=== PATIENT | female | born 1945 | race Caucasian/White ===

== ENCOUNTER 2020-11-19 09:47 | Observation (INO) ==
[2020-11-19] MEDS ORDERED: Ipratropium/Albuterol Neb 3 ML IH ONE (10:02)
[2020-11-19 10:37] LABS: Basophils % 0.7 %; Eosinophils # 0.3 K/mcL (0.0-0.6); Eosinophils % 4.3 %; Hematocrit 38.1 % (35.3-44.9); Hemoglobin 13.1 g/dL (11.5-15.4); Immature Granulocytes % 0.5 % (0-4); Lymphocytes # 0.9 K/mcL (0.6-4.6); Lymphocytes % 14.8 %; Mean Corpuscular HGB Conc 34.4 g/dL (31.6-35.5); Mean Corpuscular Hemoglobin 39.3 pg (28.0-33.3); Mean Corpuscular Volume 114.4 fL (83.0-100.0); Mean Platelet Volume 9.4 fL (9.4-12.4); Monocytes # 0.7 K/mcL (0.0-1.3); Monocytes % 11.9 %; Platelet Count 126 K/mcL (140-400); Red Blood Count 3.33 M/mcL (3.82-4.97); Red Cell Distribution Width 14.4 % (11.5-14.5); Segmented Neutrophils % 67.8 %; White Blood Count 5.9 K/mcL (4.3-11.1)
[2020-11-19 10:45] LABS: INR 1.5; Prothrombin Time 17.1 Seconds (9.4-12.1)
[2020-11-19 10:52] LABS: Platelet Estimate Normal (Normal)
[2020-11-19 10:53] LABS: Macrocytosis Present (Not Present)
[2020-11-19 10:59] LABS: Alanine Aminotransferase 22 Units/L (7-52); Albumin 2.6 g/dL (3.5-5.7); Albumin/Globulin Ratio 0.6 (1.1-2.2); Alkaline Phosphatase 114 Units/L (34-104); Aspartate Amino Transferase 49 Units/L (13-39); BUN/Creatinine Ratio 21 (6-26); Bilirubin,Direct 1.3 mg/dL (0.0-0.2); Bilirubin,Indirect 2.4 mg/dL (0.0-1.0); Bilirubin,Total 3.7 mg/dL (0.3-1.0); Blood Urea Nitrogen 21 mg/dL (8-23); Carbon Dioxide 22 mEq/L (23-29); Chloride 105 mEq/L (98-107); Globulin 4.7 g/dL (2.4-3.5); Glucose 118 mg/dL (70-105); Osmolality,Calculated 282 (280-300); Potassium 4.1 mEq/L (3.5-5.1); Sodium 134 mEq/L (136-145); Total Protein 7.3 g/dL (6.4-8.9); Troponin I < 0.03 ng/mL (< 0.04); eGFR For African Americans > 60 (> 60); eGFR For Non-African Americans 55 (> 60)
[2020-11-19] MEDS ORDERED: cefTRIAXone 1,000 MG in Water for inj. (sterile) 10 ML IVP ONE (11:55)
[2020-11-19] MEDS ORDERED: Azithromycin 500 MG in 0.9 % Sodium Chloride 250 ML IVPB ONE (11:55)
[2020-11-19 11:59] LABS: Adenovirus Not Detected (Not Detect); Bordetella Pertussis Not Detected (Not Detect); Chlamydophila pneumoniae Not Detected (Not Detect); Coronavirus 229E Not Detected (Not Detect); Coronavirus HKU1 Not Detected (Not Detect); Coronavirus NL63 Not Detected (Not Detect); Coronavirus OC43 Not Detected (Not Detect); Human Metapneumovirus Not Detected (Not Detect); Human Rhinovirus/Enterovirus Not Detected (Not Detect); Influenza A Subtype 2009 H1 Not Detected (Not Detect); Influenza B Not Detected (Not Detect); Mycoplasma pneumoniae Not Detected (Not Detect); Parainfluenza Virus 1 Not Detected (Not Detect); Parainfluenza Virus 2 Not Detected (Not Detect); Parainfluenza Virus 3 Not Detected (Not Detect); Parainfluenza Virus 4 Not Detected (Not Detect); Respiratory Syncytial Virus Not Detected (Not Detect); SARS-CoV-2 Not Detected (Not Detect)
[2020-11-19] MEDS ORDERED: Furosemide 40 MG/4 ML VIAL IVP ONE (12:20)
[2020-11-19] MEDS ORDERED: methylPREDNISolone 125 MG/2 ML VIAL IVP ONE (12:20)
[2020-11-19] MEDS ORDERED: Isovue-370 500 ML BOTTLE IVP ONE (12:22)
[2020-11-19] MEDS ORDERED: Ondansetron ODT 4 MG TAB.RAPDIS SL PRN (15:46)
[2020-11-19] MEDS ORDERED: Melatonin 3 MG TABLET PO PRN (15:46)
[2020-11-19] MEDS ORDERED: Benzonatate 100 MG CAPSULE PO PRN (15:51)
[2020-11-19] MEDS ORDERED: Dextrose Gel 15 GM/37.5 ML TUBE PO PRN ×2 (15:54)
[2020-11-19] MEDS ORDERED: *HR* Dextrose 50 % in Water (Vial) 50 ML VIAL IVP PRN (15:54)
[2020-11-19] MEDS ORDERED: D5% in Water 1,000 ML IVC PRN (15:54)
[2020-11-19] MEDS: Bumetanide 1 MG/4 ML VIAL IVP SCH (16:35)
[2020-11-19] MEDS: Insulin LISPRO 300 UNITS/3 ML VIAL SUBQ SCH ×2 (16:35→20:23)
[2020-11-19] MEDS: *HR* Heparin 5,000 UNIT/ML VIAL SQ SCH (20:18)
[2020-11-19] MEDS: atenoloL 25 MG TABLET PO SCH (20:22)
[2020-11-19 23:49] LABS: Escherichia coli by PCR DETECTED (Not Detect)
[2020-11-19 23:50] LABS: Acinetobacter baumannii by PCR Not Detected (Not Detect); Candida albicans by PCR Not Detected (Not Detect); Candida glabrata by PCR Not Detected (Not Detect); Candida krusei by PCR Not Detected (Not Detect); Candida parapsilosis by PCR Not Detected (Not Detect); Candida tropicalis by PCR Not Detected (Not Detect); Enterobacter cloacae Cmplx PCR Not Detected (Not Detect); Enterococcus by PCR Not Detected (Not Detect); Klebsiella oxytoca by PCR Not Detected (Not Detect); Klebsiella pneumoniae by PCR Not Detected (Not Detect); Proteus by PCR Not Detected (Not Detect); Pseudomonas aeruginosa by PCR Not Detected (Not Detect); Serratia marcescens by PCR Not Detected (Not Detect); Staphylococcus aureus by PCR Not Detected (Not Detect); Staphylococcus by PCR Not Detected (Not Detect); Streptococcus agalactiae(B)PCR Not Detected (Not Detect); Streptococcus by PCR Not Detected (Not Detect); Streptococcus pneumoniae PCR Not Detected (Not Detect); Streptococcus pyogenes (A) PCR Not Detected (Not Detect)
[2020-11-20] MEDS: *HR* Heparin 5,000 UNIT/ML VIAL SQ SCH ×3 (04:39→20:30)
[2020-11-20 05:48] LABS: Basophils % 0.3 %; Hematocrit 35.8 % (35.3-44.9); Hemoglobin 11.9 g/dL (11.5-15.4); Immature Granulocytes % 0.6 % (0-4); Lymphocytes # 0.6 K/mcL (0.6-4.6); Lymphocytes % 18.5 %; Mean Corpuscular HGB Conc 33.2 g/dL (31.6-35.5); Mean Corpuscular Hemoglobin 37.7 pg (28.0-33.3); Mean Corpuscular Volume 113.3 fL (83.0-100.0); Mean Platelet Volume 9.7 fL (9.4-12.4); Monocytes # 0.2 K/mcL (0.0-1.3); Monocytes % 6.1 %; Neutrophils # 2.5 K/mcL (1.6-8.9); Platelet Count 113 K/mcL (140-400); Red Blood Count 3.16 M/mcL (3.82-4.97); Red Cell Distribution Width 13.9 % (11.5-14.5); Segmented Neutrophils % 74.5 %; White Blood Count 3.3 K/mcL (4.3-11.1)
[2020-11-20 06:14] LABS: BUN/Creatinine Ratio 31 (6-26); Blood Urea Nitrogen 33 mg/dL (8-23); Calcium 8.8 mg/dL (8.6-10.3); Carbon Dioxide 24 mEq/L (23-29); Chloride 103 mEq/L (98-107); Glucose 165 mg/dL (70-105); Magnesium 1.9 mg/dL (1.6-2.6); Osmolality,Calculated 289 (280-300); Phosphorous 3.8 mg/dL (2.7-4.5); Potassium 4.3 mEq/L (3.5-5.1); Sodium 134 mEq/L (136-145); eGFR For African Americans > 60 (> 60); eGFR For Non-African Americans 51 (> 60)
[2020-11-20 06:26] LABS: Macrocytosis Present (Not Present); Platelet Estimate Normal (Normal)
[2020-11-20] MEDS: Insulin LISPRO 300 UNITS/3 ML VIAL SUBQ SCH ×4 (08:21→20:29)
[2020-11-20] MEDS: atenoloL 25 MG TABLET PO SCH (08:22)
[2020-11-20] MEDS: cefTRIAXone 1,000 MG in Water for inj. (sterile) 10 ML IVP SCH (08:22)
[2020-11-20] MEDS: Azithromycin 250 MG TABLET PO SCH (08:22)
[2020-11-20] MEDS: Bumetanide 1 MG/4 ML VIAL IVP SCH ×2 (08:22→17:28)
[2020-11-20] MEDS: predniSONE 20 MG TABLET PO SCH (08:22)
[2020-11-20] MEDS: Ipratropium/Albuterol Neb 3 ML IH PRN (16:55)
[2020-11-21 04:49] LABS: Basophils % 0.1 %; Hematocrit 36.1 % (35.3-44.9); Hemoglobin 12.2 g/dL (11.5-15.4); Immature Granulocytes % 0.4 % (0-4); Lymphocytes # 0.7 K/mcL (0.6-4.6); Lymphocytes % 9.6 %; Mean Corpuscular HGB Conc 33.8 g/dL (31.6-35.5); Mean Corpuscular Hemoglobin 38.7 pg (28.0-33.3); Mean Corpuscular Volume 114.6 fL (83.0-100.0); Mean Platelet Volume 10.2 fL (9.4-12.4); Monocytes # 0.4 K/mcL (0.0-1.3); Monocytes % 5.8 %; Neutrophils # 6.4 K/mcL (1.6-8.9); Platelet Count 117 K/mcL (140-400); Red Blood Count 3.15 M/mcL (3.82-4.97); Red Cell Distribution Width 13.8 % (11.5-14.5); Segmented Neutrophils % 84.1 %
[2020-11-21 04:53] LABS: White Blood Count 7.6 K/mcL (4.3-11.1)
[2020-11-21 04:54] LABS: Macrocytosis Present (Not Present); Platelet Estimate Slight Decrease (Normal)
[2020-11-21 05:13] LABS: Alanine Aminotransferase 23 Units/L (7-52); Albumin 2.6 g/dL (3.5-5.7); Albumin/Globulin Ratio 0.6 (1.1-2.2); Alkaline Phosphatase 93 Units/L (34-104); Aspartate Amino Transferase 46 Units/L (13-39); BUN/Creatinine Ratio 40 (6-26); Bilirubin,Total 1.8 mg/dL (0.3-1.0); Blood Urea Nitrogen 42 mg/dL (8-23); Calcium 8.8 mg/dL (8.6-10.3); Carbon Dioxide 26 mEq/L (23-29); Chloride 103 mEq/L (98-107); Globulin 4.4 g/dL (2.4-3.5); Glucose 141 mg/dL (70-105); Osmolality,Calculated 291 (280-300); Potassium 4.1 mEq/L (3.5-5.1); Sodium 134 mEq/L (136-145); eGFR For African Americans > 60 (> 60); eGFR For Non-African Americans 52 (> 60)
[2020-11-21] MEDS: *HR* Heparin 5,000 UNIT/ML VIAL SQ SCH ×3 (06:39→21:25)
[2020-11-21] MEDS: Insulin LISPRO 300 UNITS/3 ML VIAL SUBQ SCH ×4 (08:07→20:37)
[2020-11-21] MEDS: Azithromycin 250 MG TABLET PO SCH (08:16)
[2020-11-21] MEDS: atenoloL 25 MG TABLET PO SCH (08:16)
[2020-11-21] MEDS: cefTRIAXone 1,000 MG in Water for inj. (sterile) 10 ML IVP SCH (08:16)
[2020-11-21] MEDS: predniSONE 20 MG TABLET PO SCH (08:16)
[2020-11-21] MEDS: Bumetanide 1 MG/4 ML VIAL IVP SCH (08:17)
[2020-11-22 04:40] LABS: Basophils % 0.1 %; Hematocrit 34.5 % (35.3-44.9); Hemoglobin 11.2 g/dL (11.5-15.4); Immature Granulocytes % 0.4 % (0-4); Lymphocytes # 0.9 K/mcL (0.6-4.6); Lymphocytes % 12.5 %; Mean Corpuscular HGB Conc 32.5 g/dL (31.6-35.5); Mean Corpuscular Hemoglobin 37.5 pg (28.0-33.3); Mean Corpuscular Volume 115.4 fL (83.0-100.0); Mean Platelet Volume 10.2 fL (9.4-12.4); Monocytes # 0.8 K/mcL (0.0-1.3); Monocytes % 11.5 %; Neutrophils # 5.1 K/mcL (1.6-8.9); Platelet Count 117 K/mcL (140-400); Red Blood Count 2.99 M/mcL (3.82-4.97); Red Cell Distribution Width 13.6 % (11.5-14.5); Segmented Neutrophils % 75.5 %; White Blood Count 6.8 K/mcL (4.3-11.1)
[2020-11-22 05:11] LABS: Macrocytosis Present (Not Present); Platelet Estimate Normal (Normal); Reactive Lymphocytes Present (Not Present)
[2020-11-22 05:12] LABS: Anisocytosis 1+ (Not Present)
[2020-11-22 05:18] LABS: BUN/Creatinine Ratio 40 (6-26); Blood Urea Nitrogen 42 mg/dL (8-23); Calcium 8.6 mg/dL (8.6-10.3); Carbon Dioxide 27 mEq/L (23-29); Chloride 105 mEq/L (98-107); Glucose 135 mg/dL (70-105); Osmolality,Calculated 295 (280-300); Potassium 3.9 mEq/L (3.5-5.1); Sodium 136 mEq/L (136-145); eGFR For African Americans > 60 (> 60); eGFR For Non-African Americans 52 (> 60)
[2020-11-22] MEDS: *HR* Heparin 5,000 UNIT/ML VIAL SQ SCH (05:44)
[2020-11-22] MEDS ORDERED: Bumetanide 1 MG/4 ML VIAL IVP SCH (09:00)
[2020-11-22] MEDS: atenoloL 25 MG TABLET PO SCH (09:07)
[2020-11-22] MEDS: cefTRIAXone 1,000 MG in Water for inj. (sterile) 10 ML IVP SCH (09:07)
[2020-11-22] MEDS: predniSONE 20 MG TABLET PO SCH (09:07)
[2020-11-22] MEDS: Azithromycin 250 MG TABLET PO SCH (09:07)
[2020-11-22] MEDS: Insulin LISPRO 300 UNITS/3 ML VIAL SUBQ SCH ×2 (09:08→12:32)
[2020-11-22] MEDS: Ipratropium/Albuterol Neb 3 ML IH PRN ×2 (10:09→17:01)
[2020-11-22 11:09] VITALS: BP 114/64
== END 2020-11-22 17:44 | disposition home health service (06) ==
LOC: 3BNU 09:47 → EMEROOARM 09:47 → SUATTDRO 15:03 → 3BNU 16:14
PROVIDERS: ADMIT Internal Medicine; ATTEND Internal Medicine

== ENCOUNTER 2021-01-07 11:41 | Observation (INO) ==
[2021-01-07] MEDS ORDERED: Furosemide 40 MG/4 ML VIAL IVP ONE (14:02)
[2021-01-07 14:22] LABS: Basophils # 0.1 K/mcL (0.0-0.2); Basophils % 1.2 %; Eosinophils # 0.9 K/mcL (0.0-0.6); Hematocrit 41.2 % (35.3-44.9); Immature Granulocytes % 0.6 % (0-4); Lymphocytes # 1.2 K/mcL (0.6-4.6); Lymphocytes % 14.3 %; Mean Corpuscular Hemoglobin 38.8 pg (28.0-33.3); Mean Corpuscular Volume 114.1 fL (83.0-100.0); Mean Platelet Volume 9.6 fL (9.4-12.4); Monocytes # 0.9 K/mcL (0.0-1.3); Monocytes % 10.1 %; Neutrophils # 5.3 K/mcL (1.6-8.9); Platelet Count 186 K/mcL (140-400); Red Blood Count 3.61 M/mcL (3.82-4.97); Red Cell Distribution Width 13.7 % (11.5-14.5); Segmented Neutrophils % 62.8 %; White Blood Count 8.4 K/mcL (4.3-11.1)
[2021-01-07 14:45] LABS: Alanine Aminotransferase 20 Units/L (7-52); Albumin 2.7 g/dL (3.5-5.7); Albumin/Globulin Ratio 0.6 (1.1-2.2); Alkaline Phosphatase 132 Units/L (34-104); Aspartate Amino Transferase 43 Units/L (13-39); BUN/Creatinine Ratio 21 (6-26); Bilirubin,Direct 1.5 mg/dL (0.0-0.2); Bilirubin,Indirect 2.4 mg/dL (0.0-1.0); Bilirubin,Total 3.9 mg/dL (0.3-1.0); Blood Urea Nitrogen 19 mg/dL (8-23); Calcium 9.3 mg/dL (8.6-10.3); Carbon Dioxide 24 mEq/L (23-29); Chloride 101 mEq/L (98-107); Globulin 4.4 g/dL (2.4-3.5); Glucose 128 mg/dL (70-105); Osmolality,Calculated 280 (280-300); Potassium 4.2 mEq/L (3.5-5.1); Sodium 133 mEq/L (136-145); Total Protein 7.1 g/dL (6.4-8.9); Troponin I < 0.03 ng/mL (< 0.04); eGFR For African Americans > 60 (> 60); eGFR For Non-African Americans > 60 (> 60)
[2021-01-07 14:50] LABS: Macrocytosis Present (Not Present); Platelet Estimate Normal (Normal)
[2021-01-07] MEDS ORDERED: Naloxone 0.4 MG/ML INJ IVP PRN (17:21)
[2021-01-07] MEDS ORDERED: *HR* HYDROcodone/Acet 5/325 mg TABLET PO PRN (17:21)
[2021-01-07] MEDS ORDERED: Ondansetron 4 MG/2 ML VIAL IVP PRN (17:21)
[2021-01-07] MEDS ORDERED: D5% in Water 1,000 ML IVC PRN (17:24)
[2021-01-07] MEDS ORDERED: Dextrose Gel 15 GM/37.5 ML TUBE PO PRN ×2 (17:24)
[2021-01-07] MEDS ORDERED: *HR* Dextrose 50 % in Water (Vial) 50 ML VIAL IVP PRN (17:24)
[2021-01-07] MEDS: Furosemide 40 MG/4 ML VIAL IVP SCH (22:26)
[2021-01-07] MEDS: *HR* Heparin 5,000 UNIT/ML VIAL SQ SCH (22:26)
[2021-01-08 04:41] LABS: BUN/Creatinine Ratio 19 (6-26); Blood Urea Nitrogen 19 mg/dL (8-23); Calcium 8.9 mg/dL (8.6-10.3); Carbon Dioxide 25 mEq/L (23-29); Chloride 104 mEq/L (98-107); Glucose 81 mg/dL (70-105); Magnesium 1.6 mg/dL (1.6-2.6); Osmolality,Calculated 283 (280-300); Potassium 3.6 mEq/L (3.5-5.1); Sodium 136 mEq/L (136-145); eGFR For African Americans > 60 (> 60); eGFR For Non-African Americans 55 (> 60)
[2021-01-08] MEDS: *HR* Heparin 5,000 UNIT/ML VIAL SQ SCH ×2 (05:29→21:49)
[2021-01-08] MEDS: Insulin LISPRO 300 UNITS/3 ML VIAL SUBQ SCH ×3 (07:24→17:08)
[2021-01-08] MEDS: Aspirin Enteric Coated 81 MG Tablet PO SCH (09:12)
[2021-01-08] MEDS: Cholecalciferol (D-3) 1,000 UNIT (25MCG) TABLET PO SCH (09:12)
[2021-01-08] MEDS: atenoloL 25 MG TABLET PO SCH (09:12)
[2021-01-08] MEDS: Furosemide 40 MG/4 ML VIAL IVP SCH ×2 (09:12→21:49)
[2021-01-08] MEDS: Spironolactone 25 MG TABLET PO SCH ×2 (09:15→11:44)
[2021-01-08 09:33] LABS: Basophils # 0.1 K/mcL (0.0-0.2); Basophils % 1.2 %; Eosinophils % 14.8 %; Hematocrit 35.4 % (35.3-44.9); Immature Granulocytes % 0.3 % (0-4); Lymphocytes # 1.3 K/mcL (0.6-4.6); Lymphocytes % 19.8 %; Mean Corpuscular HGB Conc 34.7 g/dL (31.6-35.5); Mean Corpuscular Volume 112.4 fL (83.0-100.0); Mean Platelet Volume 9.2 fL (9.4-12.4); Monocytes # 0.8 K/mcL (0.0-1.3); Monocytes % 11.6 %; Platelet Count 150 K/mcL (140-400); Red Blood Count 3.15 M/mcL (3.82-4.97); Red Cell Distribution Width 13.7 % (11.5-14.5); Segmented Neutrophils % 52.3 %; White Blood Count 6.6 K/mcL (4.3-11.1)
[2021-01-08 10:28] LABS: Hemoglobin 12.3 g/dL (11.5-15.4); Neutrophils # 3.5 K/mcL (1.6-8.9)
[2021-01-08 11:38] LABS: Macrocytosis Present (Not Present); Platelet Estimate Normal (Normal)
[2021-01-08] MEDS ORDERED: Azithromycin 250 MG TABLET PO SCH (16:15)
[2021-01-08] MEDS: Ipratropium/Albuterol Neb 3 ML IH SCH ×2 (17:00→22:49)
[2021-01-08] MEDS: Benzonatate 100 MG CAPSULE PO PRN (17:53)
[2021-01-08] MEDS: predniSONE 20 MG TABLET PO SCH (17:53)
[2021-01-09] MEDS: Ipratropium/Albuterol Neb 3 ML IH SCH ×4 (03:16→22:09)
[2021-01-09 05:43] LABS: Basophils % 0.4 %; Eosinophils % 0.2 %; Hemoglobin 12.6 g/dL (11.5-15.4); Immature Granulocytes % 0.2 % (0-4); Lymphocytes # 0.8 K/mcL (0.6-4.6); Lymphocytes % 15.6 %; Mean Corpuscular Volume 114.3 fL (83.0-100.0); Mean Platelet Volume 9.5 fL (9.4-12.4); Monocytes # 0.2 K/mcL (0.0-1.3); Monocytes % 4.4 %; Neutrophils # 3.8 K/mcL (1.6-8.9); Platelet Count 164 K/mcL (140-400); Red Blood Count 3.15 M/mcL (3.82-4.97); Red Cell Distribution Width 13.4 % (11.5-14.5); Segmented Neutrophils % 79.2 %; White Blood Count 4.8 K/mcL (4.3-11.1)
[2021-01-09 05:57] LABS: Albumin 2.6 g/dL (3.5-5.7); Albumin/Globulin Ratio 0.7 (1.1-2.2); Bilirubin,Total 3.8 mg/dL (0.3-1.0); Calcium 9.1 mg/dL (8.6-10.3); Magnesium 1.9 mg/dL (1.6-2.6); Potassium 4.2 mEq/L (3.5-5.1); Total Protein 6.6 g/dL (6.4-8.9)
[2021-01-09 06:20] LABS: Platelet Estimate Normal (Normal)
[2021-01-09] MEDS: predniSONE 20 MG TABLET PO SCH (07:49)
[2021-01-09] MEDS: Aspirin Enteric Coated 81 MG Tablet PO SCH (07:49)
[2021-01-09] MEDS: Cholecalciferol (D-3) 1,000 UNIT (25MCG) TABLET PO SCH (07:49)
[2021-01-09] MEDS: *HR* Heparin 5,000 UNIT/ML VIAL SQ SCH ×3 (07:50→20:11)
[2021-01-09] MEDS: Insulin LISPRO 300 UNITS/3 ML VIAL SUBQ SCH ×3 (07:50→17:16)
[2021-01-09] MEDS: Spironolactone 25 MG TABLET PO SCH (08:03)
[2021-01-09] MEDS: atenoloL 25 MG TABLET PO SCH (08:03)
[2021-01-09 11:55] LABS: INR 1.4; Prothrombin Time 16.5 Seconds (9.4-12.1)
[2021-01-09 15:20] LABS: RBC,Peritoneal Fluid < 2000 RBC/mcL
[2021-01-09 15:25] LABS: Appearance of Peritoneal Fl HAZY (Clear)
[2021-01-09] MEDS: Furosemide 40 MG TABLET PO SCH (15:38)
[2021-01-09] MEDS: Benzonatate 100 MG CAPSULE PO PRN (15:38)
[2021-01-09 17:08] LABS: Basophils,Peritoneal Fluid 0 %; Eosinophils,Peritoneal Fluid 0 %
[2021-01-10 01:35] LABS: Basophils % 0.2 %; Hematocrit 33.4 % (35.3-44.9); Hemoglobin 11.6 g/dL (11.5-15.4); Immature Granulocytes % 0.3 % (0-4); Lymphocytes # 0.6 K/mcL (0.6-4.6); Lymphocytes % 9.1 %; Mean Corpuscular HGB Conc 34.7 g/dL (31.6-35.5); Mean Corpuscular Volume 115.2 fL (83.0-100.0); Monocytes # 0.6 K/mcL (0.0-1.3); Monocytes % 10.1 %; Neutrophils # 4.8 K/mcL (1.6-8.9); Platelet Count 135 K/mcL (140-400); Red Cell Distribution Width 13.4 % (11.5-14.5); Segmented Neutrophils % 80.3 %
[2021-01-10 02:02] LABS: Calcium 8.8 mg/dL (8.6-10.3); Potassium 4.1 mEq/L (3.5-5.1)
[2021-01-10] MEDS: Ipratropium/Albuterol Neb 3 ML IH SCH ×2 (03:25→09:48)
[2021-01-10] MEDS: *HR* Heparin 5,000 UNIT/ML VIAL SQ SCH (05:39)
[2021-01-10 07:23] VITALS: PULSE 83; TEMP 97.5
[2021-01-10] MEDS: Insulin LISPRO 300 UNITS/3 ML VIAL SUBQ SCH (07:32)
[2021-01-10 08:37] VITALS: BP 170/80
[2021-01-10] MEDS: Furosemide 40 MG TABLET PO SCH (08:42)
[2021-01-10] MEDS: atenoloL 25 MG TABLET PO SCH (08:42)
[2021-01-10] MEDS: Aspirin Enteric Coated 81 MG Tablet PO SCH (08:43)
[2021-01-10] MEDS: Cholecalciferol (D-3) 1,000 UNIT (25MCG) TABLET PO SCH (08:43)
[2021-01-10] MEDS: predniSONE 20 MG TABLET PO SCH (08:43)
[2021-01-10] MEDS ORDERED: Azithromycin 250 MG TABLET PO SCH (09:00)
[2021-01-10] MEDS ORDERED: Spironolactone 25 MG TABLET PO SCH (09:00)
[2021-01-10 17:18] VITALS: O2SAT 99
[2021-01-12 16:30] LABS: Fluid Source for Albumin PERITONEAL
== END 2021-01-10 10:43 | disposition home or self-care (01) ==
LOC: EMEROOARM 11:41 → 3ANU 11:41 → SUATTDRO 17:52 → 3ANU 18:40
PROVIDERS: ADMIT Internal Medicine; ATTEND General Practice

== ENCOUNTER 2021-01-22 14:24 | Observation (INO) ==
[2021-01-22 16:20] LABS: Basophils % 0.6 %; Eosinophils % 0.6 %; Hematocrit 40.3 % (35.3-44.9); Hemoglobin 13.8 g/dL (11.5-15.4); Immature Granulocytes % 0.6 % (0-4); Lymphocytes # 0.6 K/mcL (0.6-4.6); Lymphocytes % 8.8 %; Mean Corpuscular HGB Conc 34.2 g/dL (31.6-35.5); Mean Corpuscular Hemoglobin 38.3 pg (28.0-33.3); Mean Corpuscular Volume 111.9 fL (83.0-100.0); Mean Platelet Volume 9.8 fL (9.4-12.4); Monocytes # 0.8 K/mcL (0.0-1.3); Monocytes % 11.5 %; Platelet Count 115 K/mcL (140-400); Segmented Neutrophils % 77.9 %; White Blood Count 6.6 K/mcL (4.3-11.1)
[2021-01-22 16:26] LABS: Neutrophils # 5.1 K/mcL (1.6-8.9)
[2021-01-22 16:33] LABS: Amorphous Sediment,Urine Few per hpf (None-Few); Bacteria,Urine Moderate per hpf (None-Few); Bilirubin,Urine Negative (Negative); Blood,Urine Moderate (Negative); Clarity,Urine Turbid (Clear); Color,Urine Yellow (Yellow); Glucose,Urine (UA) Normal (Normal); Ketones,Urine Negative (Negative); Leukocyte Esterase,Urine Large (Negative); Mucus,Urine Few per lpf (None-Few); Nitrite,Urine Negative (Negative); PH,Urine 5.5 pH Units (5.0-8.0); Protein,Urine Trace mg/dL (Neg-Trace); RBC,Urine 0-3 per hpf (0-3); Specific Gravity,Urine 1.021 (1.010-1.025); Squamous Epithelial Cell,Urine Few per hpf (None-Few); WBC,Urine TNTC per hpf (0-3)
[2021-01-22 16:40] LABS: Alanine Aminotransferase 23 Units/L (7-52); Albumin 2.8 g/dL (3.5-5.7); Albumin/Globulin Ratio 0.8 (1.1-2.2); Alkaline Phosphatase 115 Units/L (34-104); Aspartate Amino Transferase 44 Units/L (13-39); BUN/Creatinine Ratio 23 (6-26); Bilirubin,Direct 1.6 mg/dL (0.0-0.2); Bilirubin,Indirect 3.1 mg/dL (0.0-1.0); Bilirubin,Total 4.7 mg/dL (0.3-1.0); Blood Urea Nitrogen 29 mg/dL (8-23); Calcium 8.9 mg/dL (8.6-10.3); Carbon Dioxide 21 mEq/L (23-29); Chloride 103 mEq/L (98-107); Globulin 3.6 g/dL (2.4-3.5); Glucose 149 mg/dL (70-105); Osmolality,Calculated 283 (280-300); Potassium 4.5 mEq/L (3.5-5.1); Sodium 132 mEq/L (136-145); Total Protein 6.4 g/dL (6.4-8.9); Troponin I < 0.03 ng/mL (< 0.04); eGFR For African Americans 51 (> 60); eGFR For Non-African Americans 42 (> 60)
[2021-01-22 16:50] LABS: Anisocytosis 2+ (Not Present); Platelet Estimate Slight Decrease (Normal)
[2021-01-22 17:17] LABS: Adenovirus Not Detected (Not Detect); Bordetella Pertussis Not Detected (Not Detect); Chlamydophila pneumoniae Not Detected (Not Detect); Coronavirus 229E Not Detected (Not Detect); Coronavirus HKU1 Not Detected (Not Detect); Coronavirus NL63 Not Detected (Not Detect); Coronavirus OC43 Not Detected (Not Detect); Human Metapneumovirus Not Detected (Not Detect); Human Rhinovirus/Enterovirus Not Detected (Not Detect); Influenza A Subtype 2009 H1 Not Detected (Not Detect); Influenza B Not Detected (Not Detect); Mycoplasma pneumoniae Not Detected (Not Detect); Parainfluenza Virus 1 Not Detected (Not Detect); Parainfluenza Virus 2 Not Detected (Not Detect); Parainfluenza Virus 3 Not Detected (Not Detect); Parainfluenza Virus 4 Not Detected (Not Detect); Respiratory Syncytial Virus Not Detected (Not Detect); SARS-CoV-2 Not Detected (Not Detect)
[2021-01-22] MEDS ORDERED: cefTRIAXone 1,000 MG in Water for inj. (sterile) 10 ML IVP ONE (17:26)
[2021-01-22] MEDS ORDERED: Naloxone 0.4 MG/ML INJ IVP PRN (17:50)
[2021-01-22] MEDS ORDERED: Ipratropium/Albuterol Neb 3 ML IH PRN (18:27)
[2021-01-23 01:31] LABS: Basophils % 0.4 %; Eosinophils # 0.2 K/mcL (0.0-0.6); Eosinophils % 3.4 %; Hematocrit 35.9 % (35.3-44.9); Hemoglobin 12.6 g/dL (11.5-15.4); Immature Granulocytes % 0.8 % (0-4); Lymphocytes # 0.5 K/mcL (0.6-4.6); Mean Corpuscular HGB Conc 35.1 g/dL (31.6-35.5); Mean Corpuscular Hemoglobin 39.1 pg (28.0-33.3); Mean Corpuscular Volume 111.5 fL (83.0-100.0); Monocytes # 0.6 K/mcL (0.0-1.3); Monocytes % 12.5 %; Neutrophils # 3.4 K/mcL (1.6-8.9); Platelet Count 107 K/mcL (140-400); Red Blood Count 3.22 M/mcL (3.82-4.97); Red Cell Distribution Width 13.8 % (11.5-14.5); Segmented Neutrophils % 71.9 %; White Blood Count 4.7 K/mcL (4.3-11.1)
[2021-01-23 01:54] LABS: Calcium 8.6 mg/dL (8.6-10.3); Potassium 3.9 mEq/L (3.5-5.1)
[2021-01-23 02:09] LABS: Platelet Estimate Slight Decrease (Normal)
[2021-01-23 06:46] VITALS: PULSE 82
[2021-01-23] MEDS ORDERED: Furosemide 40 MG TABLET PO SCH (09:00)
[2021-01-23] MEDS ORDERED: atenoloL 25 MG TABLET PO SCH (09:00)
[2021-01-23] MEDS ORDERED: Cholecalciferol (D-3) 1,000 UNIT (25MCG) TABLET PO SCH (09:00)
[2021-01-23] MEDS ORDERED: Aspirin Enteric Coated 81 MG Tablet PO SCH (09:00)
[2021-01-23 11:05] VITALS: BP 104/56; TEMP 98.3; O2SAT 92
[2021-01-23] MEDS ORDERED: cefTRIAXone 2,000 MG in Water for inj. (sterile) 20 ML IVP SCH (19:00)
== END 2021-01-23 13:52 | disposition home or self-care (01) ==
LOC: EMEROOARM 14:24 → 2ANU 14:24
PROVIDERS: ADMIT Internal Medicine; ATTEND Internal Medicine

== ENCOUNTER 2021-02-18 22:50 | Inpatient (IN) ==
[2021-02-19 00:18] LABS: Bilirubin,Urine Negative (Negative); Blood,Urine Negative (Negative); Clarity,Urine Clear (Clear); Color,Urine Yellow (Yellow); Glucose,Urine (UA) Normal (Normal); Ketones,Urine Negative (Negative); Leukocyte Esterase,Urine Negative (Negative); Nitrite,Urine Negative (Negative); PH,Urine 5.5 pH Units (5.0-8.0); Protein,Urine Negative (Neg-Trace); Specific Gravity,Urine 1.014 (1.010-1.025)
[2021-02-19 00:34] LABS: Basophils # 0.1 K/mcL (0.0-0.2); Basophils % 0.8 %; Eosinophils # 0.4 K/mcL (0.0-0.6); Eosinophils % 5.9 %; Hematocrit 38.3 % (35.3-44.9); Hemoglobin 12.9 g/dL (11.5-15.4); Immature Granulocytes % 0.4 % (0-4); Lymphocytes # 1.3 K/mcL (0.6-4.6); Mean Corpuscular HGB Conc 33.7 g/dL (31.6-35.5); Mean Corpuscular Hemoglobin 38.1 pg (28.0-33.3); Mean Platelet Volume 9.8 fL (9.4-12.4); Monocytes % 12.9 %; Neutrophils # 4.6 K/mcL (1.6-8.9); Platelet Count 163 K/mcL (140-400); Red Blood Count 3.39 M/mcL (3.82-4.97); Red Cell Distribution Width 14.1 % (11.5-14.5); White Blood Count 7.4 K/mcL (4.3-11.1)
[2021-02-19 00:55] LABS: Calcium 10.1 mg/dL (8.6-10.3); Potassium 4.9 mEq/L (3.5-5.1)
[2021-02-19 00:58] LABS: Platelet Estimate Normal (Normal)
[2021-02-19] MEDS ORDERED: Isovue-370 500 ML BOTTLE IVP ONE (02:16)
[2021-02-19 04:36] LABS: Troponin I 0.04 ng/mL (< 0.04)
[2021-02-19] MEDS ORDERED: Naloxone 0.4 MG/ML INJ IVP PRN (05:36)
[2021-02-19] MEDS ORDERED: Ondansetron 4 MG/2 ML VIAL IVP PRN (05:36)
[2021-02-19] MEDS ORDERED: Acetaminophen 325 MG TABLET PO PRN (05:36)
[2021-02-19 05:44] LABS: VBG HCO3 25 mEq/L (21-27); VBG PCO2 45 mmHg (41-51); VBG PH 7.36 pH Units (7.32-7.42); VBG PO2 62 mmHg (25-50)
[2021-02-19] MEDS ORDERED: Lactulose Oral Soln 20 GM/30 ML UDC PO ONE (06:05)
[2021-02-19] MEDS ORDERED: Lactulose 200 GM, Sodium Chloride IRRigation 700 ML RC ONE ×2 (06:30→20:22)
[2021-02-19] MEDS: 0.9 % Sodium Chloride 1,000 ML IVC SCH ×2 (07:00→22:45)
[2021-02-19 07:43] LABS: INR 1.3; Prothrombin Time 14.9 Seconds (9.4-12.1)
[2021-02-19 08:15] LABS: Albumin 2.9 g/dL (3.5-5.7); Albumin/Globulin Ratio 0.8 (1.1-2.2); Bilirubin,Direct 1.1 mg/dL (0.0-0.2); Bilirubin,Indirect 2.5 mg/dL (0.0-1.0); Bilirubin,Total 3.6 mg/dL (0.3-1.0); Globulin 3.8 g/dL (2.4-3.5); Total Protein 6.7 g/dL (6.4-8.9)
[2021-02-19 08:20] LABS: Folate 7.9 ng/mL (3.0-16.0)
[2021-02-19 08:29] LABS: Amphetamine Screen,Urine Negative ng/mL (Cutoff=1000); Barbiturate Screen,Urine Negative ng/mL (Cutoff=200); Benzodiazepines Screen,Urine Negative ng/mL (Cutoff=200); Cannabinoid Screen,Urine Negative ng/mL (Cutoff = 50); Cocaine Screen,Urine Negative ng/mL (Cutoff= 300); Opiate Screen,Urine Negative ng/mL (Cutoff=300); Phencyclidine Screen,Urine Negative ng/mL (Cutoff=25)
[2021-02-19] MEDS ORDERED: Ipratropium/Albuterol Neb 3 ML IH PRN (08:31)
[2021-02-19 08:57] LABS: Troponin I 0.03 ng/mL (< 0.04)
[2021-02-19] MEDS: Aspirin Enteric Coated 81 MG Tablet PO SCH (11:38)
[2021-02-19] MEDS: *HR* Heparin 5,000 UNIT/ML VIAL SQ SCH ×2 (13:56→22:44)
[2021-02-19] MEDS ORDERED: Haloperidol Lactate 5 MG/ML VIAL IVP ONE (15:52)
[2021-02-19 17:21] LABS: Calcium 9.9 mg/dL (8.6-10.3); Potassium 4.9 mEq/L (3.5-5.1)
[2021-02-19] MEDS: Lactulose Oral Soln 20 GM/30 ML UDC PO SCH (20:24)
[2021-02-19 23:52] LABS: VBG HCO3 18 mEq/L (21-27); VBG PCO2 32 mmHg (41-51); VBG PH 7.36 pH Units (7.32-7.42); VBG PO2 103 mmHg (25-50)
[2021-02-20 04:11] LABS: Basophils # 0.1 K/mcL (0.0-0.2); Basophils % 0.2 %; Hematocrit 38.3 % (35.3-44.9); Hemoglobin 13.2 g/dL (11.5-15.4); Immature Granulocytes % 0.9 % (0-4); Lymphocytes # 0.7 K/mcL (0.6-4.6); Lymphocytes % 2.7 %; Mean Corpuscular HGB Conc 34.5 g/dL (31.6-35.5); Mean Corpuscular Hemoglobin 39.8 pg (28.0-33.3); Mean Corpuscular Volume 115.4 fL (83.0-100.0); Mean Platelet Volume 10.1 fL (9.4-12.4); Monocytes # 1.5 K/mcL (0.0-1.3); Neutrophils # 22.3 K/mcL (1.6-8.9); Platelet Count 159 K/mcL (140-400); Red Blood Count 3.32 M/mcL (3.82-4.97); Red Cell Distribution Width 14.7 % (11.5-14.5); Segmented Neutrophils % 90.2 %
[2021-02-20 04:18] LABS: INR 1.5; Prothrombin Time 17.3 Seconds (9.4-12.1)
[2021-02-20 04:27] LABS: Albumin 2.7 g/dL (3.5-5.7); Albumin/Globulin Ratio 0.7 (1.1-2.2); Bilirubin,Total 6.5 mg/dL (0.3-1.0); Calcium 9.6 mg/dL (8.6-10.3); Globulin 3.8 g/dL (2.4-3.5); Total Protein 6.5 g/dL (6.4-8.9); White Blood Count 24.7 K/mcL (4.3-11.1)
[2021-02-20 04:44] LABS: Platelet Estimate Normal (Normal)
[2021-02-20 06:00] LABS: Chol/HDL Ratio 3.6 (0-4.9); Magnesium 2.2 mg/dL (1.6-2.6)
[2021-02-20] MEDS: *HR* Heparin 5,000 UNIT/ML VIAL SQ SCH ×3 (06:36→19:56)
[2021-02-20] MEDS ORDERED: Insulin Human Regular 10 UNIT in 0.9 % Sodium Chloride 10 ML IV ONE (08:06)
[2021-02-20] MEDS ORDERED: *HR* Dextrose 50 % in Water (Vial) 50 ML VIAL IVP ONE (08:06)
[2021-02-20] MEDS: Aspirin Enteric Coated 81 MG Tablet PO SCH (08:58)
[2021-02-20] MEDS: Lactulose Oral Soln 20 GM/30 ML UDC PO SCH ×4 (08:58→14:45)
[2021-02-20] MEDS ORDERED: cefTRIAXone 2,000 MG in Water for inj. (sterile) 10 ML IVP SCH (09:00)
[2021-02-20] MEDS ORDERED: Sodium Bicarbonate 75 MEQ in 0.45 % Sodium Chloride 1,000 ML IVC SCH (09:30)
[2021-02-20] MEDS ORDERED: *HR* LORazepam 2 MG/ML VIAL IVP PRN (10:58)
[2021-02-20] MEDS ORDERED: Albumin 25% 25gram/100mL 25 GM/100 ML IV.SOLN IVPB ONE (11:33)
[2021-02-20] MEDS ORDERED: Piperacillin/Tazobactam 3.375 GM in 0.9 % Sodium Chloride Mini Bag 100 ML IVPB SCH (13:00)
[2021-02-20] MEDS ORDERED: Vancomycin 1,500 MG/265 ML IV.SOLN IVPB ONE (14:00)
[2021-02-20] MEDS ORDERED: Haloperidol Lactate 5 MG/ML VIAL IVP ONE (14:18)
[2021-02-20 14:27] LABS: Potassium 5.3 mEq/L (3.5-5.1)
[2021-02-20] MEDS: *HR* FentaNYL (PF) 100 MCG/2 ML VIAL IVP PRN ×6 (17:40→23:27)
[2021-02-20] MEDS: Haloperidol Lactate 5 MG/ML VIAL IVP PRN ×3 (18:20→23:24)
[2021-02-20] MEDS: *HR* LORazepam 2 MG/ML VIAL IVP PRN (18:46)
[2021-02-21] MEDS: *HR* FentaNYL (PF) 100 MCG/2 ML VIAL IVP PRN ×6 (01:41→11:14)
[2021-02-21] MEDS: Haloperidol Lactate 5 MG/ML VIAL IVP PRN ×7 (01:42→22:29)
[2021-02-21] MEDS: *HR* LORazepam 2 MG/ML VIAL IVP PRN ×4 (02:23→20:00)
[2021-02-21] MEDS: *HR* Heparin 5,000 UNIT/ML VIAL SQ SCH ×3 (04:07→19:32)
[2021-02-21] MEDS: Aspirin Enteric Coated 81 MG Tablet PO SCH (08:41)
[2021-02-21] MEDS: Lactulose Oral Soln 20 GM/30 ML UDC PO SCH ×3 (08:41→19:10)
[2021-02-21] MEDS ORDERED: Atropine 1% Opth Drops 100 DROP/5 ML BOTTLE SL PRN (10:50)
[2021-02-21] MEDS: FentaNYL (PF) 1,000 MCG/100 ML IV.SOLN IVC SCH (12:12)
[2021-02-21 19:29] VITALS: BP 93/55
[2021-02-22] MEDS: Haloperidol Lactate 5 MG/ML VIAL IVP PRN ×4 (01:20→10:01)
[2021-02-22] MEDS: FentaNYL (PF) 1,000 MCG/100 ML IV.SOLN IVC SCH (04:05)
[2021-02-22] MEDS: *HR* Heparin 5,000 UNIT/ML VIAL SQ SCH (06:10)
[2021-02-22] MEDS: Lactulose Oral Soln 20 GM/30 ML UDC PO SCH (07:29)
[2021-02-22] MEDS: Aspirin Enteric Coated 81 MG Tablet PO SCH (07:29)
[2021-02-22 07:40] VITALS: PULSE 88; TEMP 98.7; O2SAT 93
[2021-02-22] MEDS ORDERED: Acetaminophen 650 MG RECTAL SUPP RC PRN (11:05)
[2021-02-22] MEDS ORDERED: Haloperidol Lactate 5 MG/ML VIAL IVP PRN (11:09)
[2021-02-22] MEDS ORDERED: *HR* LORazepam 2 MG/ML VIAL IVP PRN (11:11)
[2021-02-22] MEDS: Haloperidol Oral Conc 10 MG/5 ML UDC PO SCH ×3 (13:05→23:26)
[2021-02-23] MEDS: FentaNYL (PF) 1,000 MCG/100 ML IV.SOLN IVC SCH (00:20)
[2021-02-23] MEDS: Haloperidol Oral Conc 10 MG/5 ML UDC PO SCH ×3 (05:41→17:19)
[2021-02-23] MEDS: Atropine 1% Opth Drops 100 DROP/5 ML BOTTLE SL PRN ×2 (09:38→11:40)
[2021-02-23] MEDS ORDERED: Glycopyrrolate 0.2 MG/ML VIAL IVP ONE (10:07)
[2021-02-23] MEDS ORDERED: Scopolamine Patch 1.5 MG PATCH.TD72 TD SCH (13:00)
[2021-02-23] MEDS: *HR* FentaNYL (PF) 100 MCG/2 ML VIAL IVP PRN (13:57)
== END 2021-02-23 14:50 | disposition expired | DRG 441 ==
LOC: 2ANU 22:50 → EMEROOARM 22:50 → SUATTDRO 02-19 05:17 → 2ANU 02-19 05:58
PROVIDERS: ADMIT Internal Medicine; ATTEND Family Medicine